=== PATIENT | female | born 1995 | race Caucasian/White ===

== ENCOUNTER 2020-06-17 16:39 | Outpatient (REF) | payer BC, SELFPAY ==
[2020-06-18 10:45] LABS: Syphilis Serology (RPR) Negative (Negative)
[2020-06-18 11:52] LABS: HIV-1/2 Ag & Ab Screen Negative (Negative)
[2020-06-18 12:20] LABS: HSV Type 1 Ab, IgG Positive (Negative); HSV Type 2 Ab, IgG Negative (Negative)
[2020-06-19 15:34] LABS: Chlamydia Result Negative (Negative); GC Result Negative (Negative)
== END 2020-06-17 16:40 | disposition home or self-care (01) ==
LOC: NCHCN 16:39
PROVIDERS: PCP Pediatrics; Visit Provider Physician Assistant
DX: Z11.4 Encounter for screening for human immunodeficiency virus [HIV] (principal); Z11.59 Encounter for screening for other viral diseases; Z11.3 Encounter for screening for infections with a predominantly sexual mode of transmission
CPT/HCPCS: 87389; 87491; 87591; 86592; 86695; 86696

== ENCOUNTER 2020-07-08 07:22 | Emergency (ER) | payer BC, SELFPAY ==
[2020-07-08 07:28] VITALS: BP 117/59; PULSE 74; RESP 16; TEMP 36.7; O2SAT 100
--- NOTE | 2020-07-08 07:35 | W.ED.GENAD ---
Discharge Plan Disposition Patient Disposition: HOME Condition: Stable Discharge Details Clinical Impression: Cat bite of finger Primary Care Provider: Jhonatan Velez ED Provider: Margie Olvera Home Meds and New Rx's Prescriptions: New amoxicillin-pot clavulanate [Augmentin] 875-125 mg tablet 1 tab PO BID 10 Days Qty: 20 RF: 0 Continued methylphenidate HCl 5 mg tablet 5 mg PO DAILY RF: 0 fluoxetine 20 mg capsule 20 mg PO DAILY RF: 0 Discharge Instructions Instructions: Animal Bite (ED) Additional Instructions: Keep wound clean and dry. Cover wound with bandage if risk of contamination. Otherwise you can keep the wound open to air if resting at home to allow edges to dry and heal. Your prescription has been sent electronically to your pharmacy. Call the pharmacy to make sure your prescription is ready before pickup. Take the prescription as directed. Follow-up with your primary care doctor within the next few days for re-evaluation. Return to the emergency department immediately with any worsening or new concerning symptoms such as fever, increased pain, redness, swelling or any other concerns. Discharge Data Discharge Physician: Margie Olvera Medical Decision Making 24-year-old female presents with cat bite to her left thumb sustained last night while trying to break up a fight between her 2 cats. There are 2 closed puncture wounds noted to the left thumb near the nail bed and thumb pad. There is minimal erythema, mild to moderate edema and tenderness and pain with range of motion but no obvious abscess or signs of flexor tenosynovitis. No record of tetanus. Boostrix given. Will refer for x-ray to rule out foreign body. Will give 1 dose of Augmentin, ibuprofen and check urine test. Discussed that her nausea may be related to pain. She denies any vomiting or abdominal pain and appears nontoxic. X-ray reviewed and negative. Patient's finger soaked in saline and chlorhexidine wash and irrigated well. Wound covered with nonadherent dressing and tube gauze. Patient advised to keep her wound clean and dry and cover if risk of contamination. She was advised to return here immediately if she has any worsening or new concerning symptoms such as fever, increased pain, redness or swelling. She was advised to follow-up with her primary care doctor within the next few days for reevaluation. She was advised that if she cannot see her primary care doctor for reevaluation, to call or come to the emergency department to be seen as needed. Medical Records Medical records reviewed: Yes I reviewed the patient's medical records. Imaging Data Radiologic Study: Radiologist's impression: XR THUMB LT CLINICAL HISTORY: cat bites to L distal thumb. TECHNIQUE: 2D digital imaging was performed. COMPARISON: None. FINDINGS: BONES: No acute fracture is present. No bony destructive lesion is seen. JOINTS: No dislocation present. SOFT TISSUE: Normal. IMPRESSION: No evidence of acute fracture, dislocation, or subluxation. HPI General Mode of arrival: ambulatory. Date/Time Provider Initiated Documentation: 07/08/20 07:35. Limitations to Documentation: no limitations. Information obtained by: patient. HPI Narrative: Patient is a 24-year-old female who presents with cat bite to her left thumb. Patient states she was trying to break up a Fight between her 2 cats and her cat bit her left thumb in 2 places. She states her thumb is now swollen, painful and hurts with movement. She is unsure of her tetanus status. She has not taken anything for pain. Related Data Home Medications Medication Instructions Recorded Confirmed amoxicillin-pot clavulanate 1 tab PO BID 10 Days #20 tab 07/08/20 [Augmentin] fluoxetine 20 mg PO DAILY 07/08/20 07/08/20 methylphenidate HCl 5 mg PO DAILY 07/08/20 07/08/20 Previous Rx's Medication Instructions Recorded amoxicillin-pot clavulanate 1 tab PO BID 10 Days #20 tab 07/08/20 [Augmentin] Allergies Allergy/AdvReac Type Severity Reaction Status Date / Time No Known Allergies Allergy Unverified 07/08/20 07:32 General Stated Complaint: AnimalBite FELICE: 3 Review of Systems All systems reviewed & are unremarkable except as noted in HPI and below Constitutional Constitutional: Reports as per HPI, Denies chills and Denies fever(s) Eyes Eyes: Denies blurry vision ENT Ears, Nose, Mouth, and Throat: Denies dizziness, Denies sore throat and Denies throat swelling Cardiovascular Cardiovascular: Denies chest pain and Denies dyspnea Respiratory Respiratory: Denies cough and Denies dyspnea Gastrointestinal Gastrointestinal: Denies abdominal pain, Denies diarrhea, Reports nausea and Denies vomiting Genitourinary Genitourinary: Denies hematuria and Denies dysuria Musculoskeletal Musculoskeletal: Denies back pain and Denies numbness Integumentary/Breasts Skin/Breast: Reports lesions and Denies rash Neurologic Neurologic: Denies dizziness, Denies localized weakness and Denies numbness Allergic/Immunologic Allergic/Immunologic: Denies throat swelling [facility] Medical History (Updated 07/08/20 @ 08:34 by Margie Olvera DO) No significant past medical history Surgical History (Updated 01/25/18 @ 14:36 by [employer] [place]) Tonsillectomy Family History Mother No problems noted. Father Oral-mouth cancer Social History Smoking/Tobacco Use Status: Current every day Smoking risk assessment performed?: Yes Drug use: Daily Substance use type: marijuana Do you feel safe at home: Yes Do you feel safe in your relationship?: Yes Exam Const General: cooperative, healthy appearing and no acute distress HENMT Head: normal to inspection Mouth: oral mucosae normal Eyes General: appearance normal, both eyes and all related structures Neck Neck: normal visual inspection Resp Effort & Inspection: normal respiratory effort and able to speak in complete sentences Cardio Rate: regular rate Skin General skin exam: no rashes or lesions noted Neuro General: patient alert, patient awake and patient oriented x3 Motor: muscle tone normal throughout Extrem Hand/finger images: 1. 4 mm superficial laceration, edges approximated and closed. Dried blood. No active bleeding. 2. 4 mm straight laceration noted lateral to proximal nail bed. Edges approximated and closed. Dried blood. No active bleeding. Other: There is minimal erythema, mild to moderate edema and tenderness to palpation of distal phalange of thumb. There is pain with range of motion including flexion and extension of left thumb. No tenderness along the flexor tendon sheath, no pain along the tendon with passive extension. There is no abscess, fluctuance, induration. Psych Appearance: grossly normal Affect: normal affect Course Vital Signs Vital signs: Vital Signs Temperature 98.1 F 07/08/20 07:28 Pulse 74 07/08/20 07:28 Respiratory Rate 16 07/08/20 07:28 Blood Pressure 117/59 L 07/08/20 07:28 Pulse Oximetry 100 07/08/20 07:28 Temperature 98.1 F 07/08/20 07:28 Temperature Source Skin 07/08/20 07:28 Pulse 74 07/08/20 07:28 Respiratory Rate 16 07/08/20 07:28 Respiratory Effort Non-Labored 07/08/20 07:28 Blood Pressure 117/59 L 07/08/20 07:28 Blood Pressure Position Sitting 07/08/20 07:28 Pulse Oximetry 100 07/08/20 07:28 Oxygen Delivery Method Room Air 07/08/20 07:28 Oxygen Flow Rate 0 07/08/20 07:28 Pain Level 5 07/08/20 07:28
--- NOTE | 2020-07-08 08:08 | NUR.NOTE ---
Nursing Note: Animal bite report faxed to [facility] Dispatch, Ron Serrano, health officer. Message left on cell phone for Ron Serrano. . Blessing Desouza
[2020-07-08] MEDS: Amoxicillin 875/Clav. 125 TAB PO (08:09)
[2020-07-08] MEDS: Ibuprofen 600 MG TAB PO (08:23)
--- NOTE | 2020-07-08 08:27 | DI.RAD_ITS ---
EXAM: XR THUMB LT CLINICAL HISTORY: cat bites to L distal thumb. TECHNIQUE: 2D digital imaging was performed. COMPARISON: None. FINDINGS: BONES: No acute fracture is present. No bony destructive lesion is seen. JOINTS: No dislocation present. SOFT TISSUE: Normal. IMPRESSION: No evidence of acute fracture, dislocation, or subluxation. DATA REPOSITORY: RADIATION DOSE DELIVERED:
[2020-07-08 08:55] VITALS: BP 115/60; PULSE 70; RESP 16; O2SAT 100
== END 2020-07-08 08:54 | disposition home or self-care (01) ==
PROVIDERS: Emergency Provider Physician Assistant; PCP Physician Assistant
DX: S61.052A Open bite of left thumb without damage to nail, initial encounter (principal); W55.01XA Bitten by cat, initial encounter
CPT/HCPCS: 81025; 90471; 99284; 73140; 99283

== ENCOUNTER 2020-08-06 15:21 | Outpatient (REF) | payer BC, SELFPAY ==
--- NOTE | 2020-08-06 14:30 | PAPFT_PTH ---
PATIENT: Luisa Mcallister LOC: [facility] U#:[id number] AGE/SX: 24/F ROOM: RE08/06/[address]: Kristen Allen NP : 1995 BED: DIS: 08/06/2020 SPEC #: [id number] RECD: 08/06/20 18:18 STATUS: ARLETH REQ #: [id number] NOEL: 08/06/20 14:[address]: Alejandro MUHAMMAD,Kristen DEPT: [facility] Cytology RECD BY: Raiza Kelly ENTERED: 08/06/20 18:18 SP TYPE: PAPFT OTHR DR: Jhonatan Velez Tissues: 1 - CX/ENDOCX FOR PAP SMEARS Procedures: PAP THIN PREP/UVM Screening Comments: [id number]
== END 2020-08-06 15:22 | disposition home or self-care (01) ==
LOC: LBN 15:21
PROVIDERS: PCP Physician Assistant; Visit Provider Nurse Practitioner Women's Health
DX: Z12.4 Encounter for screening for malignant neoplasm of cervix (principal); Z87.42 Personal history of other diseases of the female genital tract
CPT/HCPCS: 88142

== ENCOUNTER 2021-02-17 14:01 | Outpatient (REF) | payer BC, SELFPAY ==
[2021-02-19 15:51] LABS: COVID-19 RT-PCR UVMMC Result Positive (Negative)
== END 2021-02-17 14:02 | disposition home or self-care (01) ==
LOC: NCHCN 14:01
PROVIDERS: PCP Physician Assistant; Visit Provider Physician Assistant
DX: Z20.822 Contact with and (suspected) exposure to COVID-19 (principal); J06.9 Acute upper respiratory infection, unspecified
CPT/HCPCS: U0003

== ENCOUNTER 2021-06-05 12:30 | Emergency (ER) | payer BC, SELFPAY ==
[2021-06-05 12:40] VITALS: BP 131/74; PULSE 112; RESP 14; TEMP 36.5; O2SAT 100
== END 2021-06-05 13:03 ==
PROVIDERS: Emergency Provider Emergency Medicine; PCP Physician Assistant
DX: Z53.29 Procedure and treatment not carried out because of patient's decision for other reasons (principal)

== ENCOUNTER 2022-01-08 16:08 | Emergency (ER) | payer SELFPAY ==
[2022-01-08 16:16] VITALS: BP 137/90; PULSE 101; RESP 17; TEMP 36.9; O2SAT 98
--- NOTE | 2022-01-08 16:52 | W.ED.GENAD ---
Discharge Plan Disposition Patient Disposition: HOME Condition: Stable Discharge Details Clinical Impression: Blood on toilet paper, Bright red rectal bleeding Primary Care Provider: Jhonatan Velez ED Provider: Margie Olvera Home Meds and New Rx's Prescriptions: Continued methylphenidate HCl 5 mg tablet 10 mg PO DAILY Label Comments: TAKE 1 TABLET BY MOUTH DAILY. Discharge Instructions Instructions: Rectal Bleeding (ED) Additional Instructions: Drink plenty of fluids and get plenty of rest. If you have any return of bleeding that is persistent or worsening or in association with fever, nausea, vomiting or abdominal pain, return immediately to the emergency department for further evaluation. Follow-up with your primary care doctor in 1 week. Discharge Data Discharge Physician: Margie Olvera Medical Decision Making 26-year-old female with no significant past medical history or abdominal surgery presents for a complaint of bright red blood noted on toilet paper and within the toilet 1 hour prior to arrival. She denies any fever, nausea, vomiting, abdominal pain, urinary symptoms or rectal pain. She is not taking any anticoagulation. Patient appears comfortable and nontoxic. Her vitals are within normal limits. Her abdomen is soft and nontender. Patient is declining right exam. Discussed with patient that as she appears nontoxic without any other GI complaints including fever, vomiting, abdominal or rectal pain, and acute abdominal source appears less likely. Discussed with patient that a rectal exam would be helpful, however as she is not having rectal pain, presentation may be more consistent with internal hemorrhoids rather than external hemorrhoids. Patient was able to go to the bathroom again here and states she noticed some pink on the toilet paper when wiping her rectum but states there was no further rectal bleeding noted. Patient states she is out of her home and follow-up with her primary care doctor for evaluation. She is advised to return here immediately she develops any fever, nausea, vomiting, abdominal pain and persistent or worsening rectal bleeding. HPI General Mode of arrival: ambulatory. Date/Time Provider Initiated Documentation: 01/08/22 16:16. Limitations to Documentation: no limitations. Information obtained by: patient. HPI Narrative: Pt is a 26 yo F who presents to the ED with a complaint of bright red blood on toilet paper 1 hour prior to arrival. Patient states she was sitting down to urinate and wipe front to back and noticed a little bright red blood on the toilet paper. Patient states she recently finished her period so is not suspecting her menses so than white near her rectum and noted a large amount of bright red blood on the toilet paper. Patient states she then looked in the toilet and noted a large amount of bright red blood in the toilet water. She denies any recent illness prior fever, nausea, vomiting, abdominal pain, urinary symptoms, diarrhea, rectal pain, blood thinners. Related Data Home Medications Medication Instructions Recorded Confirmed methylphenidate HCl 5 mg tablet 10 mg PO DAILY 07/08/20 01/08/22 Allergies Allergy/AdvReac Type Severity Reaction Status Date / Time No Known Allergies Allergy Unverified 01/08/22 16:19 General Stated Complaint: GI Bleed FELICE: 3 Review of Systems All systems reviewed & are unremarkable except as noted in HPI and below Constitutional Constitutional: Reports as per HPI, Denies chills and Denies fever(s) Eyes Eyes: Denies blurry vision ENT Ears, Nose, Mouth, and Throat: Denies dizziness, Denies sore throat and Denies throat swelling Cardiovascular Cardiovascular: Denies chest pain and Denies dyspnea Respiratory Respiratory: Denies cough and Denies dyspnea Gastrointestinal Gastrointestinal: Denies abdominal pain, Reports hematochezia (in toilet and on toilet paper), Denies diarrhea and Denies vomiting Genitourinary Genitourinary: Denies hematuria and Denies dysuria Musculoskeletal Musculoskeletal: Denies back pain and Denies numbness Integumentary/Breasts Skin/Breast: Denies lesions and Denies rash Neurologic Neurologic: Denies dizziness, Denies localized weakness and Denies numbness Allergic/Immunologic Allergic/Immunologic: Denies throat swelling [facility] All Active Problems (Updated 01/08/22 @ 17:18 by Margie Olvera DO) Blood on toilet paper (Acute) Bright red rectal bleeding (Acute) ADHD (Acute) Cat bite of finger (Acute) Medical History ADHD No significant past medical history Surgical History Tonsillectomy Family History Mother No problems noted. Father Oral-mouth cancer Social History Smoking/Tobacco Use Status: Former Tobacco Use Smoking risk assessment performed?: Yes Drug use: Occasionally Substance use type: marijuana Do you feel safe at home: Yes Do you feel safe in your relationship?: Yes History History 0 Para Hx # Term Pregnancies Multiple births Hx # Pregnancies Ectopic pregnancies AB induced Hx Number of Living Children AB spontaneous Exam Const General: cooperative, healthy appearing and no acute distress Orientation: alert, awake and oriented x3 HENMT Head: normal to inspection Mouth: oral mucosae normal Eyes General: appearance normal, both eyes and all related structures Neck Neck: normal visual inspection Resp Effort & Inspection: normal respiratory effort and able to speak in complete sentences Auscultation: clear to auscultation bilaterally Cardio Rate: regular rate Rhythm: regular rhythm GI Palpation: soft, not firm, no guarding, not rigid and nontender Skin General skin exam: no rashes or lesions noted Neuro General: patient alert, patient awake and patient oriented x3 Motor: muscle tone normal throughout Extrem General: normal to inspection and full ROM Psych Appearance: grossly normal Affect: normal affect Course Vital Signs Vital signs: Vital Signs Temperature 98.4 F 01/08/22 16:16 Pulse 101 H 01/08/22 16:16 Respiratory Rate 17 01/08/22 16:16 Blood Pressure 137/90 01/08/22 16:16 Pulse Oximetry 98 01/08/22 16:16 Temperature 98.4 F 01/08/22 16:16 Temperature Source Temporal Artery Scan 01/08/22 16:16 Pulse 101 H 01/08/22 16:16 Respiratory Rate 17 01/08/22 16:16 Blood Pressure 137/90 01/08/22 16:16 Blood Pressure Position Sitting 01/08/22 16:16 Pulse Oximetry 98 01/08/22 16:16 Oxygen Delivery Method Room Air 01/08/22 16:16 Oxygen Flow Rate 0 01/08/22 16:16 Pain Level 0 01/08/22 16:16
[2022-01-08 17:38] VITALS: BP 119/82; PULSE 70; RESP 16; TEMP 36.5; O2SAT 98
== END 2022-01-08 17:38 | disposition home or self-care (01) ==
PROVIDERS: Emergency Provider Physician Assistant; PCP Physician Assistant
DX: K62.5 Hemorrhage of anus and rectum (principal); F90.9 Attention-deficit hyperactivity disorder, unspecified type; Z87.891 Personal history of nicotine dependence
CPT/HCPCS: 99281

== ENCOUNTER 2022-02-19 13:16 | Outpatient (REF) | payer SELFPAY ==
[2022-02-21 13:54] LABS: Chlamydia Result Negative (Negative); GC Result Negative (Negative)
== END 2022-02-19 13:17 | disposition home or self-care (01) ==
LOC: NCHCN 13:16
PROVIDERS: PCP Physician Assistant; Visit Provider Nurse Practitioner Family
DX: Z11.3 Encounter for screening for infections with a predominantly sexual mode of transmission (principal)
CPT/HCPCS: 87491; 87591

== ENCOUNTER 2022-12-24 03:05 | Outpatient (CLI) | payer SELFPAY ==
[2022-12-27 10:59] LABS: HBs Antibody, Quant <3.1 mIU/mL (See Note); Hepatitis B Surface Ab Negative (See Note)
[2022-12-27 14:01] LABS: TB Interpretation Negative (Negative); TB1 Ag minus Nil 0.01 IU/ml
== END 2022-12-24 03:06 | disposition home or self-care (01) ==
LOC: LBO 03:05
PROVIDERS: PCP Physician Assistant; Visit Provider Nurse Practitioner Family
DX: Z02.1 Encounter for pre-employment examination (principal); Z11.59 Encounter for screening for other viral diseases; Z11.1 Encounter for screening for respiratory tuberculosis
CPT/HCPCS: 36415; 86706; 86480

== ENCOUNTER 2023-04-27 09:37 | Outpatient (REF) | payer OTHER, SELFPAY ==
[2023-04-27 23:33] LABS: HIV-1/2 Ag & Ab Screen Negative (Negative)
[2023-04-27 23:42] LABS: Hepatitis C Ab w Rflx HCV PCR Negative (Negative)
[2023-04-28 12:46] LABS: Syphilis Serology (RPR) Negative (Negative)
[2023-04-28 13:04] LABS: Chlamydia Result Negative (Negative); GC Result Negative (Negative)
== END 2023-04-27 09:38 | disposition home or self-care (01) ==
LOC: NCHCN 09:37
PROVIDERS: PCP Physician Assistant; Visit Provider Physician Assistant
DX: Z11.3 Encounter for screening for infections with a predominantly sexual mode of transmission (principal); Z11.4 Encounter for screening for human immunodeficiency virus [HIV]; Z11.59 Encounter for screening for other viral diseases
CPT/HCPCS: 86803; 87389; 87491; 87591; 86592

== ENCOUNTER 2023-07-22 09:26 | Outpatient (REF) | payer OTHER, SELFPAY ==
[2023-07-22 15:10] LABS: Anion Gap 8.2 mmol/L (3-11); BUN 20 mg/dL (7-18); CO2 26.8 mmol/L (21.0-32.0); CREATININE 0.9 mg/dL (0.55-1.02); Calcium 9.2 mg/dL (8.5-10.1); Chloride 105 mmol/L (98-107); Estimated GFR 88.75 (mL/min/1.73m2); Glucose 84 mg/dL (74-106); Potassium 4.6 mmol/L (3.5-5.1); Sodium 140 mmol/L (136-145)
[2023-07-22 15:46] LABS: Calculated LDL 149 mg/dL (<100); Cholesterol 213 mg/dL (<200); HDL Cholesterol 51 mg/dL (40-60); Triglyceride 66 mg/dL (<150)
[2023-07-22 15:58] LABS: Hemoglobin A1C 5.1 % (<5.7)
== END 2023-07-22 09:27 | disposition home or self-care (01) ==
LOC: NCHCN 09:26
PROVIDERS: PCP Physician Assistant; Visit Provider Physician Assistant
DX: Z13.220 Encounter for screening for lipoid disorders (principal); Z13.1 Encounter for screening for diabetes mellitus; Z13.228 Encounter for screening for other metabolic disorders
CPT/HCPCS: 80048; 80061; 83036

== ENCOUNTER 2024-02-28 10:38 | Outpatient (REF) | payer OTHER, SELFPAY ==
--- NOTE | 2024-02-28 10:00 | PAPFT_PTH ---
PATIENT: Luisa Mcallister LOC: [facility] U#:[id number] AGE/SX: 28/F ROOM: RE02/28/[address]: Kristen Allen NP : 1995 BED: DIS: 02/28/2024 SPEC #: [id number] RECD: 02/28/24 12:55 STATUS: ARLETH REQ #: [id number] NOEL: 02/28/24 10:[address]: Kristen Allen NP DEPT: [facility] Cytology RECD BY: Raiza Kelly ENTERED: 02/28/24 12:55 SP TYPE: PAPFT OTHR DR: Jhonatan Velez Tissues: 1 - CX/ENDOCX FOR PAP SMEARS Procedures: PAP THIN PREP/UVM Screening HPV DNA PROBE Comments: [id number] (HPV 16 & 18/45)
== END 2024-02-28 10:39 | disposition home or self-care (01) ==
LOC: LBN 10:38
PROVIDERS: PCP Physician Assistant; Visit Provider Nurse Practitioner Women's Health
DX: Z01.419 Encounter for gynecological examination (general) (routine) without abnormal findings (principal); Z12.4 Encounter for screening for malignant neoplasm of cervix
CPT/HCPCS: 88142; 87624

== ENCOUNTER 2025-01-29 14:19 | Outpatient (REF) | payer BC, SELFPAY ==
[2025-01-29 20:26] LABS: HCT 41.9 % (36.0-46.0); HGB 13.9 g/dL (11.2-15.7); MCH 29.6 pg (27.0-33.0); MCHC 33.2 % (32.0-36.0); MCV 89 fL (80-95); MPV 10.0 fL (8.0-11.0); Platelet Count 332 10^3/uL (130-400); RBC 4.70 10^6/uL (3.93-5.22); RDW 12.2 % (11.7-14.6); RDW-SD 39.8 fL; WBC 8.69 10^3/uL (4.4-10.8)
[2025-01-30 19:16] LABS: Hepatitis C Ab w Rflx HCV PCR Negative (Negative)
[2025-01-30 19:20] LABS: HIV-1/2 Ag & Ab Screen Negative (Negative)
[2025-01-31 10:45] LABS: Syphilis Serology (RPR) Negative (Negative)
[2025-01-31 12:32] LABS: Chlamydia Result Negative (Negative); GC Result Negative (Negative)
== END 2025-01-29 14:20 | disposition home or self-care (01) ==
LOC: NCHCN 14:19
PROVIDERS: PCP Physician Assistant; Visit Provider Physician Assistant
DX: K92.1 Melena (principal); Z11.3 Encounter for screening for infections with a predominantly sexual mode of transmission
CPT/HCPCS: 85027; 86803; 87389; 87491; 87591; 86592